=== PATIENT | female | born 1980 | race Caucasian/White ===

== ENCOUNTER 2019-04-18 13:28 | Emergency (ER) | payer OTHER ==
[2019-04-18 13:33] VITALS: PULSE 89; BMI 23.8
[2019-04-18 14:45] VITALS: BP 120/75; TEMP 98.6
[2019-04-18 16:56] LABS: EPI CELLS 8.6 /HPF (0-5/HPF); HYALINE CASTS 1 /lpf (0-8); URINE APPEARANCE CLEAR; URINE BACTERIA 232.9 /hpf (NEGATIVE); URINE BILIRUBIN NEGATIVE (NEGATIVE); URINE COLOR YELLOW; URINE GLUCOSE (UA) NEGATIVE (NEGATIVE); URINE KETONE NEGATIVE (NEGATIVE); URINE LEUK ESTERASE 2+ (NEGATIVE); URINE NITRITE NEGATIVE (NEGATIVE); URINE PROTEIN NEGATIVE (NEGATIVE); URINE RBC 1 /hpf (0-4); URINE UROBILINOGEN 0.2 mg/dL (0.2-1.0); URINE WBC 13 /hpf (0-5)
--- NOTE | 2019-04-18 17:00 | PN ---
Ante-Partal Exam - Subjective Subjective: Patient presenting for RLQ pain for the last couple of days. She denies LOF, VB , and reports +FM. Patient denies fever, N/V nor decreased appetite Vital Signs: Vital Signs Temperature 98.6 F 04/18/19 13:54 Pulse Rate 89 04/18/19 13:54 Respiratory Rate 20 04/18/19 13:54 Blood Pressure 120/75 04/18/19 13:54 O2 Sat by Pulse Oximetry (%) 100 04/18/19 13:31 Bleeding: No Headache: No Visual changes: No Right upper quadrant pain: No - Contractions Contractions: Yes Regularity: Irregular Intensity: Mild/Mod Monitor Mode: External - Exam during Labor Heart Rate: 135 (reactive) Variability: Moderate Category: I Monitor Accelerations: Present Monitor Decelerations: None Exam: Vaginal Dilatation (cm): 0 Effacement (%): 0 Amniotic Membrane Status: Intact Station: -3 - Assessment/Plan Assessment/Plan: 38 y/o P0 @ 27+wks by sono, reassuring status, not in active PTL, stable maternal condition with no acute abdomen. Patient is uncovered as she just moved from [place], Antepartm/PTL precautions discussed. -UA suggestive of UTI and Abx Tx provided -Patient encouraged to established care at [facility] (Card provided) -Return PRN
== END 2019-04-18 17:22 | disposition home or self-care (01) ==
LOC: JER 13:28
DX: O26.892 Other specified pregnancy related conditions, second trimester (principal); R10.9 Unspecified abdominal pain; Z3A.26 26 weeks gestation of pregnancy
CPT/HCPCS: 76801-TC; 81003; 99281-25

== ENCOUNTER 2019-07-01 07:55 | Inpatient (IN) | payer OTHER ==
[2019-07-01] MEDS ORDERED: CITRIC ACID/SODIUM CITRATE 30 ML UNIT-DOSE CUP PO ONE ×2 (09:02)
[2019-07-01] MEDS ORDERED: ELECTROLYTE-148 SOLN 500 ML IV ONE (09:02)
--- NOTE | 2019-07-01 09:14 | HP ---
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: Alzheimer's, CVA, Dementia, Migraine, Multiple Sclerosis, Peripheral Neuropathy, Parkinson's, Seizure, Syncope, TIA, Vertigo, Other Cardiovascular: No: AFIB, Aneurysm, Aortic Insufficiency, Aortic Stenosis, CAD, CHF, Deep Vein Thrombosis, HTN, Hyperlipdemia, VT, Mitral Insufficiency, Mitral Stenosis, Murmur, Pulmonary Hypertension, Other Pulmonary: No: Asthma, Bronchitis, Cancer, COPD, O2 Dependent, Pneumonia, Previously Intubated, Pulmonary Embolus, Pulmonary Fibrosis, Sleep Apnea, Other Gastrointestinal: No: Ascites, Cancer, Constipation, Crohn's Disease, Diverticulitis, Diverticulosis, Esophageal Varices, Gastritis, GERD, GI Bleed, Hemorrhoids, Hiatal Hernia, Inflamatory Bowel Disease, Irritable Bowel Disease, Pancreatitis, Peptic Ulcer Disease, Ulcerative Colitis, Other Hepatobiliary: No: Cirrhosis, Cholelithiasis, Cholecystitis, Choledocholithiasis , Hepatitis A, Hepatitis B, Hepatitis C, Other Renal/: No: Renal Failure, Renal Inusuff, BPH, Cancer, Hematuria, Hemodialysis , Neurogenic Bladder, Renal Calculi, UTI, Other Reproductive: No: Ectopic , Endometriosis, Fibroids, PID, Polycystic Ovary Syndrome, Postmenopausal, Other Heme/Onc: No: Anemia, B12 Deficiency, Bleeding Disorder, Cancer, Current Chemotherapy, Current Radiation Therapy, Hemochromatosis, Hypercoaguable State, Myeloproliferative Synd, Sickle Cell Disease, Sickle Cell Trait, Thrombocytopenia, Other Infectious Disease: No: AIDS, C-Diff, Herpes Zoster, HIV, MRSA, STD's, Tuberculosis, VREF, Other Psych: No: Addictions, Anxiety, Bipolar, Depression, Panic, Psychosis, Schizophrenia, Other Musculoskeletal: No: Bursitis, Chronic low back pain, Hemiparesis, Hemiplegia, Osteoarthritis, Paraplegia, Other Rheumatology: No: Fibromyalgia, Gout, Lupus, Rheumatoid Arthritis, Sarcoidosis, Vasculitis, Other ENT: No: Allergic Rhinitis, Sinusitis, Other Endocrine: No: Pratt's Disease, [place]'s Disease, Diabetes Insipidus, Diabetes Mellitus, Hyperparathyroidism, Hyperthyroidism, Hypothyroidism, Osteopenia, SIADH, Other Dermatology: No: Basal Cell, Cellulitis, Eczema, Melanoma, Psoriasis, Squamous Cell, Other - Past Surgical History Hx Myomectomy: Yes (laparoscopic) Hx Transabdominal Cerclage: No - Smoking History Smoking history: Never smoked - Alcohol/Substance Use Hx Alcohol Use: No History of Substance Use: reports: None - Social History History of Recent Travel: No Home Medications - Allergies Allergies/Adverse Reactions: Allergies Allergy/AdvReac Type Severity Reaction Status Date / Time peach Allergy Itching Verified 07/01/19 08:41 - Home Medications Home Medications: Ambulatory Orders Ferrous Sulfate [Iron] 325 mg PO DAILY 07/01/19 Pnv No.95/Ferrous Fum/Folic AC [ Vitamin Tablet] 1 each PO DAILY Family Medical History Family History: Unremarkable Review of Systems - Review of Systems Constitutional: reports: No Symptoms Eyes: reports: No Symptoms HENT: reports: No Symptoms Neck: reports: No Symptoms Cardiovascular: reports: No Symptoms Respiratory: reports: No Symptoms Gastrointestinal: reports: No Symptoms Genitourinary: reports: No Symptoms Breasts: reports: No Symptoms Reported Musculoskeletal: reports: No Symptoms Integumentary: reports: No Symptoms Neurological: reports: No Symptoms Endocrine: reports: No Symptoms Hematology/Lymphatic: reports: No Symptoms Psychiatric: reports: No Symptoms Physical Exam - Maternity Constitutional: Yes: Well Nourished Eyes: Yes: WNL HENT: Yes: Atraumatic Neck: Yes: Supple Cardiovascular: Yes: Regular Rate and Rhythm Breast(s): Yes: Other (deferred) - Abdominal Exam/OB Presentation: Vertex Contractions: No Regularity: Irritability Monitor Mode: External Heart Rate (range): 135 Category: I Accelerations: Uniform Decelerations: None - Vaginal Exam/OB Vaginal Bleediing: No - Physical Exam Musculoskeletal: Yes: WNL Extremities: Yes: WNL Edema: Yes Edema: LLE: Trace, RLE: Trace Integumentary: Yes: WNL Deep Tendon Reflex Grade: Normal +2 ...Motor Strength: WNL Psychiatric: Yes: Alert, Oriented Problem List - Problems (1) Hx of myomectomy Code(s): Z98.890 - OTHER SPECIFIED POSTPROCEDURAL STATES Assessment/Plan 39 y/o G1 @ 37.0wks, presenting for scheduled PLTCS due to h/o myomectomy, A1GDM with glycemic control, no OB complaints, reassuring and stable maternal condition. Risks and complications of the procedure reiterated and all questions answered. -Informed consent -Proceed as scheduled
[2019-07-01 09:21] VITALS: BMI 26.2
[2019-07-01] MEDS ORDERED: ceFAZolin 2 GRAM PREMIX BAG IVPB ONE (09:30)
[2019-07-01] MEDS ORDERED: ELECTROLYTE-148 SOLN 1,000 ML IV SCH (09:45)
[2019-07-01] MEDS ORDERED: morphine SULFATE/PF 0.5 MG/ML (2cc Syringe - QUVA) ONE (10:27)
[2019-07-01] MEDS ORDERED: ceFAZolin SODIUM 1 GM VIAL ONE (10:27)
[2019-07-01] MEDS ORDERED: DEXAMETHASONE SOD PHOSPHATE 4 MG/1 ML VIAL ONE (10:27)
[2019-07-01] MEDS ORDERED: OXYTOCIN 10 UNITS/ML VIAL ONE (10:57)
[2019-07-01] MEDS ORDERED: OXYTOCIN 20 UNITS in 0.9% NS 20 UNIT/1,000 ML INFUS.BAG IV ONE ×2 (10:58→13:31)
[2019-07-01] MEDS ORDERED: MIDAZOLAM HCL 2 MG/2 ML SINGLE DOSE VIAL ONE (11:07)
[2019-07-01] MEDS ORDERED: KETOROLAC TROMETHAMINE 30 MG/1 ML VIAL ONE (11:07)
[2019-07-01] MEDS ORDERED: ONDANSETRON 4 MG/2 ML VIAL IVPUSH PRN (11:19)
[2019-07-01] MEDS ORDERED: ACETAMINOPHEN 1000 MG/100 ML VIAL (NON FORMULARY) IVPB PRN (11:21)
[2019-07-01] MEDS ORDERED: ACETAMINOPHEN 325 MG TABLET (FP) PO PRN (11:48)
--- NOTE | 2019-07-01 11:59 | OP ---
Operative Note - Note: Operative Date: 07/01/19 ([id number]) Pre-Operative Diagnosis: 37 wks gestation, pior myomectomy Operation: PLTCS Findings: see dictation Post-Operative Diagnosis: Same as Pre-op Surgeon: Chintan Jung Anesthesia: Spinal Specimens Removed: none Estimated Blood Loss (mls): 600 Fluid Volume Replaced (mls): 1,500 Operative Report Dictated: Yes
[2019-07-01] MEDS ORDERED: OXYTOCIN 20 UNITS in 0.9% NS 20 UNIT/1,000 ML INFUS.BAG IV SCH (12:00)
[2019-07-01] MEDS ORDERED: RHO(D) IMMUNE GLOBULIN 1,500 UNIT DISP.SYRIN IM ONE (12:07)
--- NOTE | 2019-07-01 12:15 | SURG ---
Surgery Medical Observer Note Medical Observer: Chelo Ramos PA-C Date of Service: 07/01/19 Diagnosis: 37 wks gestation, pior myomectomy Procedure: PLTCS I was present for the entirety of the operative procedure. For further detail, please refer to operative report. Visit type - Case Type Case Type: Scheduled - Emergency Emergency Visit: No - New patient This patient is new to me today: Yes Date on this admission: 07/01/19
--- NOTE | 2019-07-01 14:15 | OP ---
DATE OF OPERATION: 07/01/2019 ATTENDING: Misha Bazan MD PREOPERATIVE DIAGNOSIS: 39-year-old gravity 1 at 37 weeks of gestation, A1 gestational diabetic well controlled, history of prior myomectomy. POSTOPERATIVE DIAGNOSIS: 39-year-old gravity 1 at 37 weeks of gestation, A1 gestational diabetic well controlled, history of prior myomectomy. PROCEDURE: Primary low transverse section. FINDINGS: Normal anterior abdominal wall anatomy. No parietal peritoneal adhesions. Thin, filmy adhesions of the omentum to the right fundal aspect of the uterus and the bladder on the lower uterine segment on the right. Infant in oblique presentation converted to OA. Vacuum assisted delivery due to soft tissue restriction. Bladder dome and rectus muscle fascial interface dry. INDOOR LANDSCAPE ARCHITECT: Chelo Ramos. ANESTHESIA: Spinal. ESTIMATED BLOOD LOSS: 600 mL. INTRAVENOUS FLUIDS: 1500 mL of crystalloid. URINE OUTPUT: Clear. COMPLICATIONS: None. DESCRIPTION OF PROCEDURE: The patient was taken to the operating room where anesthesia was found to be adequate. She was prepped and draped in a normal sterile fashion. Appropriate time-out took place. Pfannenstiel skin incision was made with a scalpel and carried to the underlying fascia with the Bovie. The fascia was incised in the midline and incision extended laterally with sharp dissection. Underlying rectus muscles were dissected off bluntly and sharply. The rectus muscles were in the midline superiorly with blunt dissection. The incision was extended laterally with blunt dissection. Findings as previously mentioned. Bladder blade was placed. Low transverse uterine incision was made with a scalpel approximately 5 cm above the vesicouterine junction. Amniotomy revealed clear amniotic fluid. Infant noted in oblique presentation and head secured by the surgeon. Efforts to deliver the through the surgical incision with mild fundal pressure were unsuccessful, and therefore vacuum was applied to the head appropriately to the green pressure zone. Adequate pressure activated. The rectus muscles medially were transected approximately 1 cm on each side. Mild fundal pressure with mild tension on the vacuum achieved delivery of the head. Shoulders were delivered followed by the rest of the body without difficulty. live, viable female crying. Umbilical cord was clamped after delay. Samples for gases and blood obtained. The placenta was delivered manually and intact. The uterus was exteriorized through the surgical incision, and the anterior uterine cavity was cleared of all clots and debris. Lower uterine segment incision was reapproximated with 1-0 Polysorb running, locked sutures. Excellent structural reapproximation with 1-layer suture. Two additional [id number] stitches of the same sutures were required in the midline to control minimal oozing. The uterus was internalized to the pelvic cavity, and gutters were cleared of all clots and debris. Lower uterine segment incision again hemostatic. Bladder done and rectus muscle interface as reported. Rectus muscles were reapproximated manually. No active bleeding from these areas. Fascial incision was reapproximated with 0 Polysorb running, nonlocked sutures. Excellent structural reapproximation achieved and confirmed by digital palpation by the surgeon. Subcutaneous tissues were copiously irrigated and bleeding neutralized with Bovie cautery. The subcutaneous tissues were reapproximated with 2-0 chromic subcutaneous sutures. The skin incision was reapproximated with 4-0 Biosyn subcuticular stitches. Excellent hemostasis and reapproximation achieved. Patient tolerated procedure well and is going to the recovery room in stable condition. Instrument count was reported as correct x2 by the staff. MISHA BAZAN MD [id number] MTDD
--- NOTE | 2019-07-01 14:51 | PN ---
Delivery - Delivery Type of Anesthesia: Spinal Episiotomy/Laceration: None EBL (cc): 600 Delivery, Single - Stages of Labor Date of Delivery: 07/01/19 Time of Delivery: 11:03 Time Placenta Delivered: 11:04 - Condition of Infant Oil Exploration Engineer/Food Management Aide Present: Yes Name: Caroline Adams Gender: Female Weight: 2.92 kg Position: OA Total Hours ROM (Hrs/Mins): 4 minutes - 1 Minute Total Score: 9 5 Minutes Total Score: 9 - [place] Feeding Plan Initial Plan: Elected not to breastfeed exclusively throughout hospitalization
[2019-07-01] MEDS: IBUPROFEN 800 MG/8 ML IJ IVPB PRN (17:41)
[2019-07-02] MEDS: IBUPROFEN 800 MG/8 ML IJ IVPB PRN (02:50)
[2019-07-02 07:27] LABS: BASO % 0.3 % (0-2.0); EOS % 0.2 % (0-4.5); HEMATOCRIT 27.9 % (32.4-45.2); HEMOGLOBIN 9.2 GM/dL (10.7-15.3); LYMPH % 12.2 % (8-40); MCH 29.2 pg (25.7-33.7); MCHC 32.9 g/dl (32.0-36.0); MEAN CELL VOLUME 88.8 fl (80-96); MEAN PLT VOLUME 8.7 fl (7.5-11.1); MONO % 6.1 % (3.8-10.2); NEUT % 81.2 % (42.8-82.8); PLATELET COUNT 202 K/MM3 (134-434); RBC 3.14 M/mm3 (3.60-5.2); RDW 14.1 % (11.6-15.6); WHITE BLOOD COUNT 13.7 K/mm3 (4.0-10.0)
--- NOTE | 2019-07-02 11:45 | PN ---
Post Progress Note - Subjective Subjective: ambulating, passing flatus, voiding, breast feeding, lochia decreased. Post Day: 1 Type of Delivery: Primary C/S Vital Signs: Vital Signs Temperature 98.8 F 07/02/19 07:35 Pulse Rate 80 07/02/19 07:35 Respiratory Rate 18 07/02/19 11:00 Blood Pressure 109/78 07/02/19 07:35 O2 Sat by Pulse Oximetry (%) 100 07/01/19 14:00 Breast Exam: Yes: Other Uterus: Yes: Fundus Firm Incision: Yes: Dressing dry and intact (removed), Sutures intact Abdomen/GI: Yes: Abdomen soft Lochia: Yes: Serosa Lochia, amount: Small Extremities: Yes: Calves non-tender Activity: Ambulating - Labs Labs: CBC WBC 13.7 K/mm3 (4.0-10.0) H 07/02/19 06:45 RBC 3.14 M/mm3 (3.60-5.2) L 07/02/19 06:45 Hgb 9.2 GM/dL (10.7-15.3) L 07/02/19 06:45 Hct 27.9 % (32.4-45.2) L D 07/02/19 06:45 MCV 88.8 fl (80-96) 07/02/19 06:45 MCH 29.2 pg (25.7-33.7) 07/02/19 06:45 MCHC 32.9 g/dl (32.0-36.0) 07/02/19 06:45 RDW 14.1 % (11.6-15.6) 07/02/19 06:45 Plt Count 202 K/MM3 (134-434) D 07/02/19 06:45 MPV 8.7 fl (7.5-11.1) 07/02/19 06:45 Absolute Neuts (auto) 11.1 K/mm3 (1.5-8.0) H 07/02/19 06:45 Neutrophils % 81.2 % (42.8-82.8) 07/02/19 06:45 Lymphocytes % 12.2 % (8-40) D 07/02/19 06:45 Monocytes % 6.1 % (3.8-10.2) 07/02/19 06:45 Eosinophils % 0.2 % (0-4.5) 07/02/19 06:45 Basophils % 0.3 % (0-2.0) 07/02/19 06:45 Nucleated RBC % 0 % (0-0) 07/02/19 06:45 Problem List - Problems (1) Hx of myomectomy Code(s): Z98.890 - OTHER SPECIFIED POSTPROCEDURAL STATES Assessment/Plan POD # 1 in stable condition, PP/post-op precautions discussed. -Continue PP/psot-op care -encourage ambulation -regular diet
[2019-07-02] MEDS ORDERED: BISACODYL 10 MG SUPP.RECT RC PRN (11:48)
[2019-07-02] MEDS: IBUPROFEN 600 MG TABLET (FP) PO PRN ×2 (11:55→22:07)
[2019-07-02] MEDS: ACETAMINOPHEN 325 MG TABLET (FP) PO PRN ×2 (11:56→22:06)
[2019-07-02] MEDS: SIMETHICONE 80 MG TAB.CHEW (FP) PO PRN ×2 (11:57→22:06)
--- NOTE | 2019-07-02 20:34 | PN ---
Progress Note (short form) - Note Progress Note: 39 F s/p primary C/S under Duramorph spinal. No new c/o. Vital Signs (72 hours) 07/01/19 07/01/19 07/01/19 09:14 09:27 11:52 Temperature 98.7 F 98.7 F 97.6 F Pulse Rate 89 89 85 Respiratory 20 20 20 Rate Blood Pressure 109/58 L 109/58 L 90/49 L O2 Sat by Pulse 100 Oximetry (%) 07/01/19 07/01/19 07/01/19 12:00 12:15 12:30 Temperature 97.6 F 97.7 F Pulse Rate 75 77 73 Respiratory 18 20 20 Rate Blood Pressure 90/54 L 94/53 L 91/57 L O2 Sat by Pulse 100 100 100 Oximetry (%) 07/01/19 07/01/19 07/01/19 12:45 13:00 14:00 Temperature 97.7 F 97.7 F 97.8 F Pulse Rate 77 72 80 Respiratory 20 20 20 Rate Blood Pressure 94/59 L 99/63 115/69 O2 Sat by Pulse 100 100 100 Oximetry (%) 07/01/19 07/01/19 07/01/19 15:00 16:00 17:00 Temperature 98.2 F Pulse Rate 95 H Respiratory 20 18 18 Rate Blood Pressure 118/42 L O2 Sat by Pulse Oximetry (%) 07/01/19 07/01/19 07/01/19 17:52 18:00 19:00 Temperature 98.6 F Pulse Rate 98 H Respiratory 18 18 20 Rate Blood Pressure 124/73 O2 Sat by Pulse Oximetry (%) 07/01/19 07/01/19 07/01/19 20:00 20:40 21:00 Temperature 98.3 F Pulse Rate 87 Respiratory 20 20 20 Rate Blood Pressure 98/46 L O2 Sat by Pulse Oximetry (%) 07/01/19 07/01/19 07/02/19 22:00 23:00 00:00 Temperature Pulse Rate Respiratory 20 20 20 Rate Blood Pressure O2 Sat by Pulse Oximetry (%) 07/02/19 07/02/19 07/02/19 01:00 02:00 03:00 Temperature 98.9 F Pulse Rate 82 Respiratory 20 20 20 Rate Blood Pressure 154/96 O2 Sat by Pulse Oximetry (%) 07/02/19 07/02/19 07/02/19 04:00 05:00 06:00 Temperature 98.1 F Pulse Rate 87 Respiratory 20 20 20 Rate Blood Pressure 90/60 O2 Sat by Pulse Oximetry (%) 07/02/19 07/02/19 07/02/19 07:00 07:35 08:00 Temperature 98.8 F Pulse Rate 80 Respiratory 18 18 18 Rate Blood Pressure 109/78 O2 Sat by Pulse Oximetry (%) 07/02/19 07/02/19 07/02/19 09:00 10:00 11:00 Temperature Pulse Rate Respiratory 18 18 18 Rate Blood Pressure O2 Sat by Pulse Oximetry (%) 07/02/19 15:40 Temperature 98.6 F Pulse Rate Respiratory Rate Blood Pressure O2 Sat by Pulse Oximetry (%) -NO anesthetic complications
--- NOTE | 2019-07-03 07:35 | PN ---
Post Progress Note - Subjective Subjective: Ambulating, tolerating PO, lochia decreased, breast feeding Post Day: 2 Type of Delivery: Primary C/S Vital Signs: Vital Signs Temperature 98.4 F 07/02/19 21:48 Pulse Rate 100 H 07/02/19 21:48 Respiratory Rate 20 07/02/19 21:48 Blood Pressure 111/68 07/02/19 21:48 O2 Sat by Pulse Oximetry (%) 100 07/01/19 14:00 Breast Exam: Yes: Other (deferred) Uterus: Yes: Fundus Firm Incision: Yes: Dressing dry and intact, Sutures intact Abdomen/GI: Yes: Abdomen soft Lochia, amount: Moderate Extremities: Yes: Calves non-tender Activity: Ambulating - Labs Labs: CBC WBC 13.7 K/mm3 (4.0-10.0) H 07/02/19 06:45 RBC 3.14 M/mm3 (3.60-5.2) L 07/02/19 06:45 Hgb 9.2 GM/dL (10.7-15.3) L 07/02/19 06:45 Hct 27.9 % (32.4-45.2) L D 07/02/19 06:45 MCV 88.8 fl (80-96) 07/02/19 06:45 MCH 29.2 pg (25.7-33.7) 07/02/19 06:45 MCHC 32.9 g/dl (32.0-36.0) 07/02/19 06:45 RDW 14.1 % (11.6-15.6) 07/02/19 06:45 Plt Count 202 K/MM3 (134-434) D 07/02/19 06:45 MPV 8.7 fl (7.5-11.1) 07/02/19 06:45 Absolute Neuts (auto) 11.1 K/mm3 (1.5-8.0) H 07/02/19 06:45 Neutrophils % 81.2 % (42.8-82.8) 07/02/19 06:45 Lymphocytes % 12.2 % (8-40) D 07/02/19 06:45 Monocytes % 6.1 % (3.8-10.2) 07/02/19 06:45 Eosinophils % 0.2 % (0-4.5) 07/02/19 06:45 Basophils % 0.3 % (0-2.0) 07/02/19 06:45 Nucleated RBC % 0 % (0-0) 07/02/19 06:45 Problem List - Problems (1) Hx of myomectomy Code(s): Z98.890 - OTHER SPECIFIED POSTPROCEDURAL STATES Assessment/Plan POD # 2 in stable condition, PP/post-op precautions discussed. -Continue PP/post-op care -encourage ambulation -regular diet -Patient encouraged to use pain meds
[2019-07-03] MEDS: oxyCODONE HCL 5 MG TABLET PO PRN ×2 (09:15→15:29)
[2019-07-03] MEDS: IBUPROFEN 600 MG TABLET (FP) PO PRN ×2 (09:17→15:31)
[2019-07-03] MEDS: SIMETHICONE 80 MG TAB.CHEW (FP) PO PRN ×2 (09:17→15:31)
[2019-07-04] MEDS: SIMETHICONE 80 MG TAB.CHEW (FP) PO PRN (02:53)
[2019-07-04] MEDS: oxyCODONE HCL 5 MG TABLET PO PRN (02:54)
[2019-07-04] MEDS: IBUPROFEN 600 MG TABLET (FP) PO PRN ×2 (02:54→14:53)
[2019-07-04 06:38] LABS: BASO % 0.2 % (0-2.0); EOS % 1.1 % (0-4.5); HEMATOCRIT 29.8 % (32.4-45.2); HEMOGLOBIN 9.7 GM/dL (10.7-15.3); LYMPH % 15.7 % (8-40); MCH 29.2 pg (25.7-33.7); MCHC 32.5 g/dl (32.0-36.0); MEAN CELL VOLUME 89.9 fl (80-96); MEAN PLT VOLUME 8.1 fl (7.5-11.1); MONO % 5.1 % (3.8-10.2); NEUT % 77.9 % (42.8-82.8); PLATELET COUNT 226 K/MM3 (134-434); RBC 3.31 M/mm3 (3.60-5.2); RDW 14.1 % (11.6-15.6); WHITE BLOOD COUNT 7.7 K/mm3 (4.0-10.0)
--- NOTE | 2019-07-04 08:31 | PN ---
Post Progress Note - Subjective Subjective: ambulating, voiding, breast feeding exclusively, lochia decreased, desiring to stay until tomorrow Post Day: 3 Type of Delivery: Primary C/S Vital Signs: Vital Signs Temperature 98.2 F 07/03/19 20:31 Pulse Rate 91 H 07/03/19 20:31 Respiratory Rate 20 07/03/19 20:31 Blood Pressure 133/66 07/03/19 20:31 O2 Sat by Pulse Oximetry (%) 100 07/01/19 14:00 Breast Exam: Yes: Other (deferred) Uterus: Yes: Fundus Firm Incision: Yes: Sutures intact Abdomen/GI: Yes: Abdomen soft Lochia, amount: Small Extremities: Yes: Calves non-tender Activity: Ambulating - Labs Labs: CBC WBC 7.7 K/mm3 (4.0-10.0) 07/04/19 06:18 RBC 3.31 M/mm3 (3.60-5.2) L 07/04/19 06:18 Hgb 9.7 GM/dL (10.7-15.3) L 07/04/19 06:18 Hct 29.8 % (32.4-45.2) L 07/04/19 06:18 MCV 89.9 fl (80-96) 07/04/19 06:18 MCH 29.2 pg (25.7-33.7) 07/04/19 06:18 MCHC 32.5 g/dl (32.0-36.0) 07/04/19 06:18 RDW 14.1 % (11.6-15.6) 07/04/19 06:18 Plt Count 226 K/MM3 (134-434) 07/04/19 06:18 MPV 8.1 fl (7.5-11.1) 07/04/19 06:18 Absolute Neuts (auto) 6.0 K/mm3 (1.5-8.0) 07/04/19 06:18 Neutrophils % 77.9 % (42.8-82.8) 07/04/19 06:18 Lymphocytes % 15.7 % (8-40) D 07/04/19 06:18 Monocytes % 5.1 % (3.8-10.2) 07/04/19 06:18 Eosinophils % 1.1 % (0-4.5) D 07/04/19 06:18 Basophils % 0.2 % (0-2.0) 07/04/19 06:18 Nucleated RBC % 0 % (0-0) 07/04/19 06:18 Problem List - Problems (1) Hx of myomectomy Code(s): Z98.890 - OTHER SPECIFIED POSTPROCEDURAL STATES Assessment/Plan POD # 3 in stable condition, PP/post-op precautions discussed. Infant with elevated bilirubin and patient desires to stay an extra day. Pain better controlled after taking oxycodone -Continue PP/post-op care -encourage ambulation -regular diet -Patient encouraged to use pain meds -D/C home tomorrow
[2019-07-05] MEDS: ACETAMINOPHEN 325 MG TABLET (FP) PO PRN (05:26)
[2019-07-05] MEDS: SIMETHICONE 80 MG TAB.CHEW (FP) PO PRN (05:26)
[2019-07-05] MEDS: IBUPROFEN 600 MG TABLET (FP) PO PRN ×2 (05:27→11:38)
--- NOTE | 2019-07-05 08:02 | DS ---
Physical Examination Vital Signs: Vital Signs Temperature 98.0 F 07/04/19 21:58 Pulse Rate 90 07/04/19 21:58 Respiratory Rate 20 07/04/19 21:58 Blood Pressure 114/58 L 07/04/19 21:58 O2 Sat by Pulse Oximetry (%) 100 07/01/19 14:00 Constitutional: Yes: Well Nourished, No Distress, Calm Eyes: Yes: WNL, Conjunctiva Clear, EOM Intact HENT: Yes: WNL, Atraumatic, Normocephalic Neck: Yes: WNL, Supple, Trachea Midline Cardiovascular: Yes: WNL, Regular Rate and Rhythm Respiratory: Yes: WNL, Regular, CTA Bilaterally Gastrointestinal: Yes: WNL, Normal Bowel Sounds Musculoskeletal: Yes: WNL Extremities: Yes: WNL Edema: No Integumentary: Yes: WNL Neurological: Yes: WNL, Alert, Oriented ...Motor Strength: WNL Psychiatric: Yes: WNL Labs: CBC, BMP 07/04/19 06:18 Discharge Summary Problems reviewed: Yes Reason For Visit: C SECTION Current Active Problems Hx of myomectomy (Acute) Procedures: Principal: Repeat Hospital Course: Patient presented for a scheduled RLTCS She had an uncomplicated procedure She met all postoperative milestones She was discharged home on POD#4 Condition: Stable - Instructions Diet, Activity, Other Instructions: Return to regular diet as tolerated, take medications as prescribed. Return to regular activity as per physician clearance. Follow up within a week of discharge [facility] for incision check Referrals: Chintan Jung MD [Staff Physician] - Disposition: HOME - Home Medications Comprehensive Discharge Medication List: Ambulatory Orders Acetaminophen [Tylenol] 325 mg PO Q6H PRN #30 capsule MDD 5 07/01/19 Ferrous Sulfate [Iron] 325 mg PO DAILY 07/01/19 Ibuprofen 600 mg PO Q6H PRN #30 tablet 07/01/19 Oxycodone HCl 5 mg PO Q6H PRN 3 Days #12 tablet MDD 5 07/01/19 Pnv No.95/Ferrous Fum/Folic AC [ Vitamin Tablet] 1 each PO DAILY
[2019-07-05 11:08] VITALS: BP 119/68; PULSE 91; TEMP 98.1
--- NOTE | 2019-07-07 16:37 | PATH ---
Surgical Pathology Report Patient Name: CARTER BUTLER [facility]. Rec. 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 Electronically Signed Kelli Mena M.D. Gross Description The specimen is received fresh labeled placenta and is a 479 gram, 19.5 x 15.0 x 2.7 cm. placenta with attached membranes and umbilical cord. The attached membranes are gomes, translucent with focal opacities and insert marginally. The umbilical cord measures 9.5 cm. in length and averages 1 cm. in diameter. The cord inserts eccentrically, 3.5 cm. to the nearest margin. No true knots or strictures are identified. Cut surface of the umbilical cord reveals 3 vessels. The surface is turner-blue with minimal fibrin deposition and appropriate caliber vessels. The maternal surface is red-brown with focal defects. Sectioning reveals red-brown, spongy parenchyma. No lesions are identified. Financial Sales Manager sections are submitted in three cassettes as follows: 1- membrane rolls and umbilical cord; 2-3- full thickness sections of placenta. 07/05/2019 [facility]07/05/2019
== END 2019-07-05 13:50 | disposition home or self-care (01) | DRG 540 ==
LOC: JLDR 07:55 → J3W 16:00
PROVIDERS: ADMIT Student in an Organized Health Care Education/Training Program; ATTEND Student in an Organized Health Care Education/Training Program
PROC: 10D00Z1 Extraction of Products of Conception, Low, Open Approach (ICD-10-PCS; principal; 2019-07-01)
PROC: 10D07Z6 Extraction of Products of Conception, Vacuum, Via Natural or Artificial Opening (ICD-10-PCS; 2019-07-01)
DX: O32.2XX0 Maternal care for transverse and oblique lie, not applicable or unspecified (principal); O24.420 Gestational diabetes mellitus in childbirth, diet controlled; Z3A.37 37 weeks gestation of pregnancy; Z37.0 Single live birth
CPT/HCPCS: 36415; 36600; 82803; 82962; 85025; 85461; 86900; 86999

== ENCOUNTER 2022-11-29 11:45 | Emergency (ER) | payer OTHER ==
[2022-11-29 11:49] VITALS: BP 118/64; RESP 18; TEMP 98.3; BMI 23.9
[2022-11-29] MEDS ORDERED: MECLIZINE HCL 25 MG TABLET (FP) PO ONE (13:00)
[2022-11-29] MEDS ORDERED: MECLIZINE HCL 25 MG TABLET (FP) ONE (13:04)
[2022-11-29 14:58] VITALS: PULSE 85
== END 2022-11-29 14:59 | disposition home or self-care (01) ==
LOC: JER 11:45
DX: R42 Dizziness and giddiness (principal); R11.0 Nausea; R26.89 Other abnormalities of gait and mobility; R09.81 Nasal congestion; J30.2 Other seasonal allergic rhinitis; Z20.822 Contact with and (suspected) exposure to COVID-19
CPT/HCPCS: 0241U-QW; 84703; 93005; 93010; 99284-25

== ENCOUNTER 2023-07-23 10:43 | Emergency (ER) | payer OTHER ==
[2023-07-23 11:21] VITALS: RESP 18; BMI 29.2
[2023-07-23] MEDS ORDERED: SODIUM CHLORIDE 1,000 ML IV STA (12:27)
[2023-07-23 12:34] LABS: EPI CELLS 29 /uL (0-25.1); HYALINE CASTS 1 /uL (0-3.1); PH,URINE 5.5 (5.0-8.0); URINE APPEARANCE CLEAR; URINE BACTERIA 170 /uL (0-1359); URINE BILIRUBIN NEGATIVE (NEGATIVE); URINE COLOR YELLOW; URINE GLUCOSE (UA) NEGATIVE (NEGATIVE); URINE KETONE 1+ (NEGATIVE); URINE LEUK ESTERASE NEGATIVE (NEGATIVE); URINE NITRITE NEGATIVE (NEGATIVE); URINE PROTEIN NEGATIVE (NEGATIVE); URINE RBC 22 /uL (0-23.9); URINE UROBILINOGEN 0.2 mg/dL (0.2-1.0); URINE WBC 12 /uL (0-25.8)
[2023-07-23] MEDS ORDERED: ACETAMINOPHEN 1000 MG/100 ML BAG IVPB ONE (12:34)
[2023-07-23] MEDS ORDERED: ONDANSETRON 4 MG/2 ML VIAL IVPUSH ONE (12:35)
[2023-07-23 12:36] LABS: HCG,QUALITATIVE URINE Negative
[2023-07-23] MEDS ORDERED: ACETAMINOPHEN INJECTION 100 ML IVPB ONE (12:48)
[2023-07-23] MEDS ORDERED: ONDANSETRON 4 MG/2 ML VIAL ONE (12:48)
[2023-07-23 12:52] LABS: BASO % 0.3 % (0-2.0); EOS % 0.5 % (0-4.5); HEMATOCRIT 41.3 % (32.4-45.2); HEMOGLOBIN 13.6 GM/dL (10.7-15.3); LYMPH % 13.8 % (8-40); MCH 27.3 pg (25.7-33.7); MEAN CELL VOLUME 82.9 fl (80-96); MEAN PLT VOLUME 7.5 fl (7.5-11.1); MONO % 7.6 % (3.8-10.2); NEUT % 77.8 % (42.8-82.8); PLATELET COUNT 210 10^3/uL (134-434); RBC 4.99 M/mm3 (3.60-5.2); RDW 14.4 % (11.6-15.6); WHITE BLOOD COUNT 3.9 K/mm3 (4.0-10.0)
[2023-07-23] MEDS ORDERED: KETOROLAC TROMETHAMINE 30 MG/1 ML VIAL IVPUSH ONE (13:18)
[2023-07-23 13:24] LABS: POTASSIUM 4.1 mmol/L (3.5-5.1)
[2023-07-23] MEDS ORDERED: KETOROLAC TROMETHAMINE 30 MG/1 ML VIAL ONE (13:26)
[2023-07-23 13:27] LABS: ALBUMIN 3.9 g/dl (3.4-5.0); BLOOD UREA NITROGEN 8.2 mg/dL (7-18)
[2023-07-23 13:30] LABS: CREATININE 0.7 mg/dL (0.55-1.3)
[2023-07-23 13:31] LABS: BILIRUBIN,TOTAL 0.2 mg/dL (0.2-1); TOT PROT 7.9 g/dl (6.4-8.2)
[2023-07-23 13:59] VITALS: BP 100/54; PULSE 78; TEMP 99.5
== END 2023-07-23 13:58 | disposition home or self-care (01) ==
LOC: JER 10:43
PROC: 3E033NZ Introduction of Analgesics, Hypnotics, Sedatives into Peripheral Vein, Percutaneous Approach (ICD-10-PCS; principal; 2023-07-23)
PROC: 3E0333Z Introduction of Anti-inflammatory into Peripheral Vein, Percutaneous Approach (ICD-10-PCS; 2023-07-23)
PROC: 3E033GC Introduction of Other Therapeutic Substance into Peripheral Vein, Percutaneous Approach (ICD-10-PCS; 2023-07-23)
PROC: 3E0337Z Introduction of Electrolytic and Water Balance Substance into Peripheral Vein, Percutaneous Approach (ICD-10-PCS; 2023-07-23)
DX: J10.1 Influenza due to other identified influenza virus with other respiratory manifestations (principal); R11.2 Nausea with vomiting, unspecified; R19.7 Diarrhea, unspecified; M79.10 Myalgia, unspecified site; R50.9 Fever, unspecified; R05.9 Cough, unspecified; Z20.822 Contact with and (suspected) exposure to COVID-19
CPT/HCPCS: 0241U-QW; 36415; 80053; 81003; 83690; 84703; 85025; 87086; 99284-25

== ENCOUNTER 2023-11-06 15:11 | Emergency (ER) | payer OTHER ==
[2023-11-06 15:20] VITALS: BP 103/66; PULSE 74; RESP 18; TEMP 98.3; BMI 23.9
[2023-11-06 16:59] LABS: BASO % 0.6 % (0-2.0); EOS % 0.9 % (0-4.5); HEMATOCRIT 35.8 % (32.4-45.2); HEMOGLOBIN 11.9 GM/dL (10.7-15.3); LYMPH % 17.3 % (8-40); MCH 27.9 pg (25.7-33.7); MCHC 33.2 g/dl (32.0-36.0); MEAN CELL VOLUME 83.9 fl (80-96); MEAN PLT VOLUME 7.1 fl (7.5-11.1); MONO % 7.8 % (3.8-10.2); NEUT % 73.4 % (42.8-82.8); PLATELET COUNT 217 10^3/uL (134-434); RBC 4.26 M/mm3 (3.60-5.2); RDW 14.8 % (11.6-15.6)
[2023-11-06 17:00] LABS: URINE APPEARANCE Error; URINE BILIRUBIN NEGATIVE (NEGATIVE); URINE COLOR YELLOW; URINE GLUCOSE (UA) NEGATIVE (NEGATIVE); URINE KETONE NEGATIVE (NEGATIVE); URINE LEUK ESTERASE NEGATIVE (NEGATIVE); URINE NITRITE NEGATIVE (NEGATIVE); URINE PROTEIN NEGATIVE (NEGATIVE); URINE UROBILINOGEN 0.2 mg/dL (0.2-1.0)
[2023-11-06 17:19] LABS: CHLORIDE 107 mmol/L (98-107); SODIUM 136 mmol/L (136-145)
[2023-11-06 17:20] LABS: CALCIUM 8.8 mg/dL (8.5-10.1)
[2023-11-06 17:21] LABS: ANION GAP 0 mmol/L (4-13); BLOOD UREA NITROGEN 10.6 mg/dL (7-18); CO2 29 mmol/L (21-32); GLUCOSE,RANDOM 94 mg/dL (74-106)
[2023-11-06 17:24] LABS: CREATININE 0.6 mg/dL (0.55-1.3)
[2023-11-06] MEDS ORDERED: MECLIZINE HCL 25 MG TABLET (FP) ONE (18:12)
[2023-11-06] MEDS: MECLIZINE HCL 25 MG TABLET (FP) PO ONE (18:15)
== END 2023-11-06 21:11 | disposition home or self-care (01) ==
LOC: JER 15:11
DX: N83.201 Unspecified ovarian cyst, right side (principal); N83.202 Unspecified ovarian cyst, left side; R42 Dizziness and giddiness
CPT/HCPCS: 36415; 76830-TC; 80048; 81003; 84702; 84703; 85025; 87086; 99284-25